=== PATIENT | male | born 1945 | race Caucasian/White ===

== ENCOUNTER 2018-08-15 14:15 | Inpatient (IN) | payer MEDICARE ==
[~2018-08-15] VITALS: Ht 180.3 cm; Wt 71.2 kg
[2018-08-15] MEDS ORDERED: LORA0.5T PO (14:27)
[2018-08-15] MEDS ORDERED: ATOR10TA PO (14:27)
[2018-08-15] MEDS ORDERED: ACET325T53 PO (14:27)
[2018-08-15] MEDS ORDERED: MULT-213 PO (14:27)
[2018-08-15] MEDS ORDERED: TEMA7.5C PO (14:27)
[2018-08-15] MEDS ORDERED: QUET50TA PO (14:27)
[2018-08-15] MEDS ORDERED: CITA10TA17 PO (14:27)
[2018-08-15] MEDS ORDERED: MELA3TAB PO (14:27)
[2018-08-15] MEDS ORDERED: QUET25TA PO (14:27)
--- NOTE | 2018-08-15 14:45 | NUR ---
hospital lunch tray provided for pt. pt is eating with good apetite
--- NOTE | 2018-08-15 15:00 | NUR ---
Dr Miles at the bedside for MSE.
[2018-08-15 15:21] LABS: BASOPHILS # (AUTO) 0.1 K/uL (0.0-8.0); BASOPHILS % (AUTO) 0.9 % (0.0-2.0); EOSINOPHILS # (AUTO) 0.1 K/uL (0.0-0.7); EOSINOPHILS % (AUTO) 1.2 % (0.0-7.0); HEMATOCRIT 39.9 % (36.7-47.1); HEMOGLOBIN 13.3 g/dL (12.5-16.3); LYMPHOCYTES % (AUTO) 14.1 % (20.5-51.5); MEAN CORPUSCULAR HGB CONC 33 g/dL (32.5-36.3); MEAN CORPUSCULAR VOLUME 98.7 fL (73.0-96.2); MONOCYTES # (AUTO) 0.7 K/uL (2.0-10.0); MONOCYTES % (AUTO) 9.6 % (0.0-11.0); NEUTROPHILS # (AUTO) 5.1 K/uL (1.8-8.9); NEUTROPHILS % (AUTO) 74.2 % (38.5-71.5); PLATELET COUNT (AUTO) 185 K/uL (152-348); RED BLOOD CELL COUNT(AUTO) 4.04 MIL/uL (4.06-5.63); WHITE BLOOD COUNT (AUTO) 6.9 K/uL (3.6-10.2)
[2018-08-15 15:28] LABS: CARBON DIOXIDE 28 mmol/L (21-32); CHLORIDE 106 mmol/L (98-107); CREATININE 1.4 mg/dL (0.6-1.3); GLUCOSE 133 mg/dL (74-106); UREA NITROGEN, BLOOD 24 mg/dL (7-18)
[2018-08-15 15:34] LABS: ACETAMINOPHEN < 2.0 ug/mL (10-30); ALANINE AMINOTRANSFERASE 25 U/L (16-63); ALKALINE PHOSPHATASE 81 U/L (50-136); ASPARTATE AMINOTRANSFERASE 20 U/L (15-37); BILIRUBIN,DIRECT 0.2 mg/dL (0.0-0.2); BILIRUBIN,TOTAL 0.3 mg/dL (0.2-1.0); TOTAL PROTEIN, SERUM 6.9 g/dL (6.4-8.2)
[2018-08-15 15:35] LABS: ETHANOL < 3 MG/DL (0-0)
[2018-08-15 15:54] LABS: THYROID STIMULATING HORMONE 1.665 mIU/mL (0.358-3.740)
--- NOTE | 2018-08-15 16:05 | NUR ---
Pt is medically cleared by Dr Miles. PET called and spoke to Marcy MEAD.
--- NOTE | 2018-08-15 16:28 | NUR ---
Per psych intake, Gigi. Lexie MEAD will evaluate pt.
[2018-08-15 16:29] LABS: *BILIRUBIN,URIN NEGATIVE (NEGATIVE); *BLOOD, URINE NEGATIVE (NEGATIVE); *CLARITY,URINE CLEAR (CLEAR); *COLOR,URINE YELLOW (YELLOW); *KETONES,URINE NEGATIVE (NEGATIVE); *PROTEIN,URINE NEGATIVE (NEGATIVE); *UROBILINOGEN,URINE 0.2 E.U./dl (NORMAL); LEUKOCYTE ESTERASE ,URINE NEGATIVE (NEGATIVE); NITRITE, URINE NEGATIVE (NEGATIVE); PH,URINE 5.5 (5.0-8.0); UGLUCOSE NEGATIVE (NEGATIVE)
[2018-08-15 16:32] LABS: WBC,URINE 0-3 /HPF (0-3)
[2018-08-15 16:33] LABS: MUCUS,URINE MODERATE /LPF (0-FEW)
[2018-08-15 16:39] LABS: *AMPHETAMINE, URINE NEGATIVE (NEGATIVE); *BARBITURATE, URINE NEGATIVE (NEGATIVE); *CANNABINOID, URINE NEGATIVE (NEGATIVE); *COCCAINE, URINE NEGATIVE (NEGATIVE); *OPIATE, URINE NEGATIVE (NEGATIVE); *PHENCYCLIDINE SCREEN,URINE NEGATIVE (NEGATIVE)
--- NOTE | 2018-08-15 17:14 | NUR ---
Lexie Kaplan at the bedside for psych eval.
--- NOTE | 2018-08-15 17:25 | NUR ---
MRSA swab collected and sent to LAB.
--- NOTE | 2018-08-15 17:30 | NUR ---
Pt placed on 5150 hold for GD. Pt served dinner, ate w/ excellent appetite.
[2018-08-15] MEDS ORDERED: MAGNESIUM HYDROXIDE 30 ML LIQUID UDC PO PRN (18:30)
[2018-08-15] MEDS ORDERED: MAG HYDROX/AL HYDROX/SIMETH 30 ML LIQUID UDC PO PRN (18:30)
[2018-08-15 18:45] VITALS: BP 122/70
[2018-08-15 19:30] VITALS: BP 122/70
[2018-08-15] MEDS: TEMAZEPAM 7.5 MG CAPSULE PO PRN (20:57)
[2018-08-15] MEDS: ATORVASTATIN 10 MG TABLET PO SCH (21:00)
[2018-08-15] MEDS: LORAZEPAM 0.5 MG TABLET PO PRN ×2 (22:45→22:47)
[2018-08-16] MEDS: LORAZEPAM 0.5 MG TABLET PO PRN ×2 (05:02→08:59)
[2018-08-16 07:30] VITALS: BP 93/50
[2018-08-16] MEDS: MULTIVIT, IRON, MIN NO. 8, FA TABLET PO SCH (08:21)
[2018-08-16] MEDS ORDERED: Medication Not On Formulary EA (Multivitamins W-Minerals (Multivitamin With Minerals) 1 PO SCH (09:00)
--- NOTE | 2018-08-16 09:00 | NUR ---
patient pacing in room grabbing trash and walking to restroom with it, when asked where patient was taking trash patient replied "I dont know" ativan given for anxiety, will continue to monitor
--- NOTE | 2018-08-16 13:07 | NUR ---
Nutrition consult for "refusing to eat" was received. Chart reviewed. h/o dementia, psychosis. Patient on a regular diet. Per ED nursing notes, patient ate both lunch and dinner yesterday with good appetite. Breakfast this morning documented as 100%. BMI is normal. Per nursing screen, patient denied any unintentional weight loss over the past 3 months, reported poor appetite/intake seemingly related to care home from which patient was admitted. RD to conduct full nutrition assessment per nutrition policy. Addendum: 08/16/18 at [address] Amended: Links added.
[2018-08-16] MEDS ORDERED: PERMETHRIN 5% CREAM 60 GM TUBE TP ONE (13:15)
--- NOTE | 2018-08-16 15:00 | NUR ---
Elimite cream applied all over body, educated patient on medication and the need for it to be washed off later tonight. will endorse to night time nanny
[2018-08-16] MEDS: QUETIAPINE FUMARATE 25 MG TABLET PO SCH (16:56)
[2018-08-16 17:01] VITALS: BP 94/51
[2018-08-16 20:52] VITALS: BP 100/51
[2018-08-16] MEDS ORDERED: CITALOPRAM 10 MG TABLET PO SCH (21:00)
[2018-08-16] MEDS: ATORVASTATIN 10 MG TABLET PO SCH (22:18)
[2018-08-16] MEDS: TEMAZEPAM 7.5 MG CAPSULE PO PRN (22:55)
[2018-08-17] MEDS: LORAZEPAM 0.5 MG TABLET PO PRN ×2 (01:08→05:10)
[2018-08-17] MEDS: ACETAMINOPHEN 325 MG TABLET PO PRN (01:10)
--- NOTE | 2018-08-17 02:02 | NUR ---
Received pt to care, pt noted to be laying in bed, service writer observed pt moving feet and body around. Pt was showered, clothes and linen were changed. Pt was alert and oriented x 2-3, pleasant, cooperative, withdrawn. Pt complied with taking his medication. Approximately 0100 pt came to the nursing station complaining of a headache. Pt was offered tylenol but he refused, pt was offered ativan pt obliged and also stated that he would like to take the tylenol as well. PRN's were given. Pt is now back in bed. I will continue to monitor.
--- NOTE | 2018-08-17 02:08 | NUR ---
Approximately 2000 Pt family members brought a black sweater and white T-shirt with a note for pt. Belongings added to chart and pt name written in the collar with a black sharpie. Pt was given the items.
--- NOTE | 2018-08-17 05:12 | NUR ---
pt is complaining of having a headache 03/07, tylenol could not be admin as it was not due. Pt offered ativan and it was given. Pt states that he has a "daily morning headache" that he has been getting for a while now. Ramp Jockey will endorse to day shift. Pt also took off his gown and came into the guardado wearing a little brown jacket. Pt complained of being cold. Ramp Jockey redirected as pt was practically naked with jacket. Pt seems anxious.
[2018-08-17 07:30] VITALS: BP 127/78
[2018-08-17] MEDS: MULTIVIT, IRON, MIN NO. 8, FA TABLET PO SCH (08:19)
[2018-08-17] MEDS: QUETIAPINE FUMARATE 25 MG TABLET PO SCH ×2 (08:19→12:09)
[2018-08-17 17:15] VITALS: BP 100/55
[2018-08-17 20:08] VITALS: BP 100/48
[2018-08-17] MEDS: ATORVASTATIN 10 MG TABLET PO SCH (21:23)
[2018-08-17] MEDS: OLANZAPINE 2.5 MG TABLET PO SCH (21:23)
[2018-08-18] MEDS: LORAZEPAM 0.5 MG TABLET PO PRN (01:05)
--- NOTE | 2018-08-18 06:56 | NUR ---
Pt compliant with meds, stayed in his room withdrawn most of the shift. Pt woke up one time stating that he could not sleep. Req to sleep in the TV room, pt redirected back to his room and PRN ativan was given. It was too late to give a sleeping pill. Pt sat in his room chair with a blanket, quietly. After 30 min pt returned back to bed. Pt is cooperative, isolated.
[2018-08-18 08:26] VITALS: BP 103/54
[2018-08-18] MEDS: MULTIVIT, IRON, MIN NO. 8, FA TABLET PO SCH (08:51)
--- NOTE | 2018-08-18 11:36 | NUR ---
Initial Discharge Note: Patient is currently living at [facility] [[address] [place] [address]; ]. Per event promotions coordinator, Deepika, they would liek patient to find different placement due to behaviors. However, patient is welcomed back if no other placement can be arranged. Patient states he likes facility but may want to go to an independent living. alley worker is awaiting call back from son, Guilherme [[phone]], to discuss placement as he may be patient DPOA. Per psych MD, recommendation is SNF placement. alley worker will collaborate with patient, patient son, and son on a safe and proper discharge for patient.
--- NOTE | 2018-08-18 12:03 | NUR ---
Firearms Report: LOGAN completed and submitted DOJ Firearms Report for 5250 GD certification.
--- NOTE | 2018-08-18 15:47 | NUR ---
GROUP ACTIVITY NOTE: GOAL Patient will actively participate in the group activity of the day or relax out in the patio room with fellow patients. INTERVENTION Starbucks Clerk invited patient to participate in a group activity consisting of crossword puzzles and coloring held from 10:30-11:15 am out in the patio. RESPONSE Patient expressed disinterest in participating in activities or relaxing in the activities room with peers. Patient remained in their room resting during that time. PLAN Patient will be invited to attend the next group activity.
[2018-08-18 16:39] VITALS: BP 106/67
[2018-08-18 20:22] VITALS: BP 110/61
[2018-08-18] MEDS: ATORVASTATIN 10 MG TABLET PO SCH (20:49)
[2018-08-18] MEDS: OLANZAPINE 2.5 MG TABLET PO SCH (20:49)
[2018-08-19 07:24] LABS: BASOPHILS % (AUTO) 0.7 % (0.0-2.0); EOSINOPHILS # (AUTO) 0.1 K/uL (0.0-0.7); EOSINOPHILS % (AUTO) 2.1 % (0.0-7.0); HEMATOCRIT 42.5 % (36.7-47.1); HEMOGLOBIN 14.6 g/dL (12.5-16.3); LYMPHOCYTES # (AUTO) 1.1 K/uL (20.0-40.0); LYMPHOCYTES % (AUTO) 23.7 % (20.5-51.5); MEAN CORPUSCULAR HGB CONC 34 g/dL (32.5-36.3); MEAN CORPUSCULAR VOLUME 96.4 fL (73.0-96.2); MONOCYTES # (AUTO) 0.7 K/uL (2.0-10.0); MONOCYTES % (AUTO) 14.3 % (0.0-11.0); NEUTROPHILS # (AUTO) 2.9 K/uL (1.8-8.9); NEUTROPHILS % (AUTO) 59.2 % (38.5-71.5); PLATELET COUNT (AUTO) 160 K/uL (152-348); RED BLOOD CELL COUNT(AUTO) 4.41 MIL/uL (4.06-5.63); WHITE BLOOD COUNT (AUTO) 4.8 K/uL (3.6-10.2)
[2018-08-19 07:30] VITALS: BP 108/67
[2018-08-19 07:37] LABS: ALANINE AMINOTRANSFERASE 21 U/L (16-63); ALKALINE PHOSPHATASE 75 U/L (50-136); ASPARTATE AMINOTRANSFERASE 18 U/L (15-37); BILIRUBIN,TOTAL 0.7 mg/dL (0.2-1.0); CARBON DIOXIDE 29 mmol/L (21-32); CHLORIDE 106 mmol/L (98-107); CREATINE KINASE, TOTAL 61 U/L (39-308); CREATININE 1.2 mg/dL (0.6-1.3); GLUCOSE 81 mg/dL (74-106); PHOSPHOROUS 3.4 mg/dL (2.5-4.9); POTASSIUM 4.3 mmol/L (3.5-5.1); TOTAL PROTEIN, SERUM 6.9 g/dL (6.4-8.2); UREA NITROGEN, BLOOD 27 mg/dL (7-18)
[2018-08-19] MEDS: MULTIVIT, IRON, MIN NO. 8, FA TABLET PO SCH (09:22)
[2018-08-19] MEDS: LORAZEPAM 0.5 MG TABLET PO PRN ×3 (09:28→17:46)
[2018-08-19 16:14] VITALS: BP 106/56
--- NOTE | 2018-08-19 16:19 | NUR ---
Gps/Senior Tax Analyst- Had been in and out of his room, safety reviewed, compliant with medications, confused, needed redirections.
[2018-08-19] MEDS: ACETAMINOPHEN 325 MG TABLET PO PRN ×2 (17:42→17:45)
[2018-08-19] MEDS: OLANZAPINE 2.5 MG TABLET PO SCH (20:52)
[2018-08-19] MEDS: ATORVASTATIN 10 MG TABLET PO SCH (20:52)
[2018-08-19 21:53] VITALS: BP 110/67
[2018-08-19] MEDS: TEMAZEPAM 7.5 MG CAPSULE PO PRN (22:46)
[2018-08-20 08:23] VITALS: BP 101/61
[2018-08-20] MEDS: MULTIVIT, IRON, MIN NO. 8, FA TABLET PO SCH (08:26)
[2018-08-20 16:23] VITALS: BP 114/60
[2018-08-20 20:09] VITALS: BP 101/60
[2018-08-20] MEDS ORDERED: OLANZAPINE 2.5 MG TABLET PO SCH (21:00)
[2018-08-20] MEDS: DIVALPROEX 500 MG TABLET.DR PO SCH (21:08)
[2018-08-20] MEDS: ATORVASTATIN 10 MG TABLET PO SCH (21:08)
[2018-08-20] MEDS: OLANZAPINE 5 MG TABLET PO SCH (21:08)
[2018-08-21 07:30] VITALS: BP 90/50
[2018-08-21] MEDS: DIVALPROEX 250 MG TABLET.DR PO SCH (09:35)
[2018-08-21] MEDS: MULTIVIT, IRON, MIN NO. 8, FA TABLET PO SCH (09:35)
[2018-08-21 16:02] VITALS: BP 113/63
--- NOTE | 2018-08-21 18:24 | NUR ---
PT WAS NOTED TO HAVE BIZARRE BEHAVIOR, STIP HIS BED AND PUT LINEN IN THE TRASH, WASHING CLOTHES IN THE TOILET, PT IS RESTLESS AND DOES NOT KNOW WHY HE DID IT. DR. BENITEZ CONTACTED, ORDER FOR 1;1 SITTER OBTAINED.
[2018-08-21 20:00] VITALS: BP 104/65
[2018-08-21] MEDS: ATORVASTATIN 10 MG TABLET PO SCH (20:08)
[2018-08-21] MEDS: DIVALPROEX 500 MG TABLET.DR PO SCH (20:08)
[2018-08-21] MEDS: OLANZAPINE 5 MG TABLET PO SCH (20:08)
--- NOTE | 2018-08-21 21:00 | NUR ---
RECEIVED PATIENT IN THE DAY ROOM WATCHING TV. HE IS NOW ON 1:1 SUPERVISION D/T INCREASING BIZARRE BX. WONDERING INTO OTHER PATIENT'S ROOM, MOVING FURNITURE, BLANKETS, SHEETS, CONSTANTLY CHANGING CLOTHES AND PACING THE HALLWAY. HE IS NOTED A/O X 1, HE IS ABLE TO AMBULATE WITH STEADY GAIT AND ABLE TO MAKE HIS NEEDS KNOWN. PATIENT PRESENTS WITH LABILE BX. TANGENTAL BIZARRE BX. ATIVAN 0.5MG PO PRN WAS GIVEN FOR ANXIETY AND AGITATION. SAFETY WAS EMPHASIS. WILL CONTINUE TO MONITOR.
[2018-08-21] MEDS: LORAZEPAM 0.5 MG TABLET PO PRN (21:03)
[2018-08-22 07:30] VITALS: BP 107/60
[2018-08-22] MEDS: MULTIVIT, IRON, MIN NO. 8, FA TABLET PO SCH (08:46)
[2018-08-22] MEDS: DIVALPROEX 250 MG TABLET.DR PO SCH (08:46)
[2018-08-22 14:41] LABS: *BILIRUBIN,URIN NEGATIVE (NEGATIVE); *BLOOD, URINE NEGATIVE (NEGATIVE); *CLARITY,URINE CLEAR (CLEAR); *COLOR,URINE YELLOW (YELLOW); *KETONES,URINE NEGATIVE (NEGATIVE); *PROTEIN,URINE NEGATIVE (NEGATIVE); *UROBILINOGEN,URINE 0.2 E.U./dl (NORMAL); LEUKOCYTE ESTERASE ,URINE NEGATIVE (NEGATIVE); NITRITE, URINE NEGATIVE (NEGATIVE); UGLUCOSE NEGATIVE (NEGATIVE)
[2018-08-22 14:53] LABS: BACTERIA,URINE NONE SEEN /HPF (NONE SEEN); RBC,URINE 0-3 /HPF (0-3); SQUAMOUS EPITHELIAL CELL,UR FEW /HPF (NONE SEEN); WBC,URINE 0-3 /HPF (0-3)
[2018-08-22 14:54] LABS: *CREATININE,URINE 106.9 mg/dL (30-125)
[2018-08-22 15:43] LABS: *URINE TOTAL PROTEIN RANDOM 14.5 mg/dL (<150/24HR)
[2018-08-22 16:10] VITALS: BP 91/53
--- NOTE | 2018-08-22 17:36 | NUR ---
Gps/Special Delivery Carrier- Remains with a 1:1 Nursing supervision for safety, needing constant redirections, tends to paced around . Safety reviewed and continue to emphasized.Meds. compliant.
[2018-08-22 20:00] VITALS: BP 102/55
[2018-08-22] MEDS: ATORVASTATIN 10 MG TABLET PO SCH (20:44)
[2018-08-22] MEDS: TEMAZEPAM 7.5 MG CAPSULE PO PRN (20:44)
[2018-08-22] MEDS: DIVALPROEX 500 MG TABLET.DR PO SCH (20:44)
[2018-08-22] MEDS ORDERED: OLANZAPINE 5 MG TABLET PO SCH (21:00)
[2018-08-23] MEDS: LORAZEPAM 0.5 MG TABLET PO PRN (06:09)
[2018-08-23 07:30] VITALS: BP_SYST 132; BP_SYST 94; BP_DIAS 50; BP_DIAS 69
[2018-08-23] MEDS: MULTIVIT, IRON, MIN NO. 8, FA TABLET PO SCH (08:25)
[2018-08-23] MEDS: DIVALPROEX 250 MG TABLET.DR PO SCH (08:25)
[2018-08-23 16:00] VITALS: BP 90/53
[2018-08-23 19:49] VITALS: BP 99/72
[2018-08-23] MEDS: OLANZAPINE 5 MG TABLET PO SCH (20:15)
[2018-08-23] MEDS: ATORVASTATIN 10 MG TABLET PO SCH (20:15)
[2018-08-23] MEDS: DIVALPROEX 500 MG TABLET.DR PO SCH (20:16)
--- NOTE | 2018-08-24 06:01 | NUR ---
Received Pt in the hallways asking for crackers. A+Ox3, Pt is intrusive, attention-seeking, demanding, needy, manipulative, and entitled. Irritable when demands aren't immediately met. Pt is constantly asking for extra snacks despite consuming several snacks during the shift, attempts to staff split when given limits. Pt asked for the TV to be changed in the day room while other patients are in the middle of a program. Threatened to pull the fire alarm if he didn't get toothpaste. Pt stripped his bed and asked for new bedding 2 times, then demanded staff put the new bedding on. Requires frequent redirection and limit setting. Compliant with medications, VS stable, denies pain. In no acute physical distress. Took AM shower.
[2018-08-24 07:30] VITALS: BP 98/60
[2018-08-24] MEDS: DIVALPROEX 500 MG TABLET.DR PO SCH ×2 (08:16→20:24)
[2018-08-24] MEDS: MULTIVIT, IRON, MIN NO. 8, FA TABLET PO SCH ×2 (08:16→10:26)
--- NOTE | 2018-08-24 09:47 | NUR ---
Discharge Planning: plugger worker called and left voicemail for patient sonGuilherme [[phone]], requesting phone call back to discuss discharge plan. Patient is a resident from [facility]. Per facility, they will take him back but would like him to be placed in a different facility if possible. plugger worker will need to speak with patient son, Guilherme, who is also DPOA, about placement.
[2018-08-24] MEDS: LORAZEPAM 0.5 MG TABLET PO PRN (10:31)
--- NOTE | 2018-08-24 14:53 | NUR ---
Discharge Planning Note: Linen Checker received call from patient's son, Guilherme ([phone]) to discuss discharge planning and the patient's prognosis. Explained to son the patient's plan to "go to [place]," and reside with family there. Per son, pt "can't get it in his head" that family who lives in [place] cannot care for him. Per son, pt's family is all located in [place]. SW discussed Woodrow Ramsey's wishes with son, and son agreed to alternate locked SNF placement for the patient. SW inquired about DPOA paperwork, and son reported he will bring it with him tomorrow, 08/25/18, when he comes to visit the patient. LOGAN consulted with Dr. Oquendo who asked that referrals be sent to [facility] (ph. [phone] ; fax [phone] Attn: Anika) and [facility] (ph. [phone]; fax [phone] Attn: Guy). Awaiting responses from facilities. SW will continue to follow-up.
[2018-08-24 16:44] VITALS: BP 114/69
[2018-08-24 20:12] VITALS: BP 130/75
[2018-08-24] MEDS: OLANZAPINE 5 MG TABLET PO SCH (20:24)
[2018-08-24] MEDS: ATORVASTATIN 10 MG TABLET PO SCH (20:24)
[2018-08-25 07:30] VITALS: BP 105/62
[2018-08-25] MEDS: DIVALPROEX 500 MG TABLET.DR PO SCH ×2 (08:15→20:07)
--- NOTE | 2018-08-25 10:06 | NUR ---
Discharge Planning Note: SW received call from patient's ex-, Ana ([phone]) and pt's son, Guilherme requesting that inquiries be faxed to the [facility] as well. Per family request, LOGAN faxed inquiries to the following facilities: Leatha Jules (P: [phone] F: [phone]) [facility] (p. [phone]; f. [phone]) Attn: Nalini Robins [facility] (p. [phone]; f. [phone]) Attn: Charlotte Muniz (p. [phone]; f. [phone]) Attn: Lindsay Awaiting responses from facilities. LOGAN will continue to follow-up. Addendum: 08/26/18 at 1525 by RADHIKA HAYDEN LOGAN received responses from the following facilities: [facility]: Pt denied due to inability to provide for pt's needs [facility]: Pt denied due to lack of male beds available Alie Muniz: Pt denied due to lace of beds available [facility]: Pt accepted [facility]: Pt accepted LOGAN will continue to follow-up with Leatha Tuckerero and pt's family to discuss DC plan.
[2018-08-25 16:16] VITALS: BP 106/64
--- NOTE | 2018-08-25 16:31 | NUR ---
GROUP ACTIVITY NOTE: GOAL Patient will actively participate in the group activity of the day or relax in the activity room with fellow patients. INTERVENTION Clinic Supervisor internal controls analyst invited patient to participate in a group activity consisting of painting masks, completing crossword puzzles or reading held from 2-2:30 pm in the activities room. RESPONSE Patient was asleep when approached to attend the group activity. Patient rested in their room for the remainder of time. PLAN Patient will be invited to attend the next group activity.
[2018-08-25] MEDS: BENZTROPINE MESYLATE 0.5 MG TABLET PO SCH (16:32)
[2018-08-25] MEDS: HALOPERIDOL 5 MG TABLET PO SCH (17:38)
[2018-08-25] MEDS: ACETAMINOPHEN 325 MG TABLET PO PRN (18:24)
[2018-08-25 19:57] VITALS: BP 109/73
[2018-08-25] MEDS: ATORVASTATIN 10 MG TABLET PO SCH (20:08)
[2018-08-26] MEDS: TEMAZEPAM 7.5 MG CAPSULE PO PRN ×2 (01:10→21:50)
[2018-08-26 07:30] VITALS: BP 116/65
[2018-08-26] MEDS: BENZTROPINE MESYLATE 0.5 MG TABLET PO SCH ×3 (08:29→17:58)
[2018-08-26] MEDS: DIVALPROEX 500 MG TABLET.DR PO SCH ×2 (08:29→20:36)
[2018-08-26] MEDS: MULTIVIT, IRON, MIN NO. 8, FA TABLET PO SCH (08:29)
[2018-08-26] MEDS: HALOPERIDOL 5 MG TABLET PO SCH ×2 (08:29→17:58)
[2018-08-26 10:52] VITALS: BP 116/65
[2018-08-26 16:00] VITALS: BP 112/78
--- NOTE | 2018-08-26 20:00 | NUR ---
NSG: pt is awake, alert. no acute distress noted. a bit anxious. has several cuts on fingers due to dryness, wants to put band aid on every single cut. needs redirection at all times. cont to monitor. self-care, ambulatory with steady gait.
[2018-08-26 20:33] VITALS: BP 114/61
[2018-08-26] MEDS: ATORVASTATIN 10 MG TABLET PO SCH (20:36)
[2018-08-27 07:02] LABS: BASOPHILS % (AUTO) 0.6 % (0.0-2.0); EOSINOPHILS # (AUTO) 0.1 K/uL (0.0-0.7); EOSINOPHILS % (AUTO) 2.9 % (0.0-7.0); HEMATOCRIT 42.5 % (36.7-47.1); HEMOGLOBIN 14.3 g/dL (12.5-16.3); LYMPHOCYTES # (AUTO) 1.3 K/uL (20.0-40.0); LYMPHOCYTES % (AUTO) 26.3 % (20.5-51.5); MEAN CORPUSCULAR HEMOGLOBIN 32.3 uug (23.8-33.4); MEAN CORPUSCULAR HGB CONC 34 g/dL (32.5-36.3); MEAN CORPUSCULAR VOLUME 95.8 fL (73.0-96.2); MONOCYTES # (AUTO) 0.8 K/uL (2.0-10.0); MONOCYTES % (AUTO) 15.2 % (0.0-11.0); NEUTROPHILS # (AUTO) 2.7 K/uL (1.8-8.9); PLATELET COUNT (AUTO) 117 K/uL (152-348); RED BLOOD CELL COUNT(AUTO) 4.44 MIL/uL (4.06-5.63)
[2018-08-27 07:19] LABS: CARBON DIOXIDE 29 mmol/L (21-32); CHLORIDE 104 mmol/L (98-107); CREATININE 1.2 mg/dL (0.6-1.3); GLUCOSE 62 mg/dL (74-106); MAGNESIUM 2.1 mg/dL (1.8-2.4); PHOSPHOROUS 3.4 mg/dL (2.5-4.9); UREA NITROGEN, BLOOD 24 mg/dL (7-18)
[2018-08-27 07:30] VITALS: BP 112/64
[2018-08-27 07:39] LABS: EOSINOPHILS % (MANUAL) 2 % (0-8); LYMPHOCYTES % (MANUAL) 26 % (20-40); MONOCYTES % (MANUAL) 15 % (2-10)
[2018-08-27 07:40] LABS: NEUTROPHILS % (MANUAL) 57 % (42-75)
[2018-08-27] MEDS: DIVALPROEX 500 MG TABLET.DR PO SCH (08:34)
[2018-08-27] MEDS: HALOPERIDOL 5 MG TABLET PO SCH ×2 (08:34→17:27)
[2018-08-27] MEDS: BENZTROPINE MESYLATE 0.5 MG TABLET PO SCH ×3 (08:34→17:28)
[2018-08-27] MEDS: MULTIVIT, IRON, MIN NO. 8, FA TABLET PO SCH (08:34)
--- NOTE | 2018-08-27 08:50 | NUR ---
Blood sugar with am draw 62, rechecked sugar prior to breakfast 72. will monitor and will notify MD upon rounding.
--- NOTE | 2018-08-27 14:29 | NUR ---
GROUP ACTIVITY NOTE: GOAL Patient will actively participate in the group activity of the day or relax in the activity room with fellow patients. INTERVENTION Environmental Test Technician sports management intern invited patient to participate in a group activity consisting of board games, painting masks, or watching TV held from 10-10:45 am in the activities room. RESPONSE Patient expressed disinterest in participating in group activities. PLAN Patient will be invited to attend the next group activity.
--- NOTE | 2018-08-27 14:53 | NUR ---
Discharge Note: Patient will be discharged to [facility] [[address] [place] [address]; ] and transportation will be provided by ambulance at 4:00pm. Please arrange ambulance transportation for this patient. Confirmation of acceptance at facility was provided by calixto Tovar, at facility who states they are ready to accept the patient. forming process worker has called and spoken with patient son, Guilherme [[phone]], and informed him of patient discharge. Patient is alert and oriented x2-3 and denies any SI/HI. Patient was briefed on discharge and aware and agreeable to plan. Patient will follow-up with Dr. Damon (chef german) and Dr. Oquendo (psychiatrist). Patient was given outpatient mental health resources including [facility] Crisis Line [ ], Mari Winters [ ], and the National Suicide Prevention Lifeline [ ].
[2018-08-27 16:00] VITALS: BP 120/70
--- NOTE | 2018-08-27 18:02 | NUR ---
Pt discharged via ambulance after dinner. Report given to ALYCE Otero from [facility]. Addendum: 08/27/18 at 1803 by MARCIANO MAKI RN All belongings sent with pt.
== END 2018-08-27 18:00 | DRG 885 ==
LOC: ER 14:15 → GPS 17:54
PROVIDERS: ADMIT Psychiatry & Neurology Psychiatry; ATTEND Psychiatry & Neurology Psychiatry
DX: F33.3 Major depressive disorder, recurrent, severe with psychotic symptoms (principal); N17.0 Acute kidney failure with tubular necrosis; N18.3 Chronic kidney disease, stage 3 (moderate); F03.91 Unspecified dementia, unspecified severity, with behavioral disturbance; F23 Brief psychotic disorder; F41.9 Anxiety disorder, unspecified; E78.5 Hyperlipidemia, unspecified; F42.9 Obsessive-compulsive disorder, unspecified; G47.00 Insomnia, unspecified; R73.9 Hyperglycemia, unspecified; I12.9 Hypertensive chronic kidney disease with stage 1 through stage 4 chronic kidney disease, or unspecified chronic kidney disease; E88.09 Other disorders of plasma-protein metabolism, not elsewhere classified; B86 Scabies
CPT/HCPCS: 36415; 70030-TC; 71045; 80164; 80307; 83735; 83970; 84100; 84156; 84300; 84443; 85025; 85730; 93005; A4663; G0480; G0480-TC; J3490

== ENCOUNTER 2018-10-18 20:47 | Inpatient (IN) | payer MEDICARE ==
[~2018-10-18] VITALS: Ht 175.3 cm; Wt 69.4 kg
[~2018-10-18 20:47] MED LIST: ACET325T53 PO; ATOR10TA PO; MULT-213 PO
--- NOTE | 2018-10-18 21:00 | NUR ---
Patient bib ambulanz unit #[id number] from [facility]. Patient is here for medical clearance for MHU. Patient is on a 5150 for GD and DTO. Upon assessment, patient is AAO x 1 and confused. Patient is calm and cooperative. Safety precautions implemented. Will continue to monitor closely.
[2018-10-18 21:17] LABS: BASOPHILS % (AUTO) 0.7 % (0.0-2.0); EOSINOPHILS # (AUTO) 0.1 K/uL (0.0-0.7); EOSINOPHILS % (AUTO) 1.6 % (0.0-7.0); HEMATOCRIT 39.9 % (36.7-47.1); HEMOGLOBIN 13.7 g/dL (12.5-16.3); LYMPHOCYTES # (AUTO) 1.1 K/uL (20.0-40.0); MEAN CORPUSCULAR HEMOGLOBIN 33.5 uug (23.8-33.4); MEAN CORPUSCULAR HGB CONC 35 g/dL (32.5-36.3); MEAN CORPUSCULAR VOLUME 97.1 fL (73.0-96.2); MONOCYTES # (AUTO) 0.6 K/uL (2.0-10.0); MONOCYTES % (AUTO) 12.8 % (0.0-11.0); NEUTROPHILS # (AUTO) 2.7 K/uL (1.8-8.9); NEUTROPHILS % (AUTO) 59.9 % (38.5-71.5); PLATELET COUNT (AUTO) 56 K/uL (152-348); RED BLOOD CELL COUNT(AUTO) 4.11 MIL/uL (4.06-5.63); WHITE BLOOD COUNT (AUTO) 4.5 K/uL (3.6-10.2)
[2018-10-18 21:19] LABS: *BILIRUBIN,URIN NEGATIVE (NEGATIVE); *BLOOD, URINE Trace-intact (NEGATIVE); *CLARITY,URINE CLEAR (CLEAR); *COLOR,URINE YELLOW (YELLOW); *KETONES,URINE TRACE (NEGATIVE); *UROBILINOGEN,URINE 0.2 E.U./dl (NORMAL); LEUKOCYTE ESTERASE ,URINE NEGATIVE (NEGATIVE); NITRITE, URINE NEGATIVE (NEGATIVE); PH,URINE 7.5 (5.0-8.0); UGLUCOSE NEGATIVE (NEGATIVE)
[2018-10-18 21:25] LABS: CARBON DIOXIDE 33 mmol/L (21-32); CHLORIDE 103 mmol/L (98-107); CREATININE 1.2 mg/dL (0.6-1.3); GLUCOSE 98 mg/dL (74-106); POTASSIUM 4.5 mmol/L (3.5-5.1); UREA NITROGEN, BLOOD 19 mg/dL (7-18)
[2018-10-18 21:25] LABS: BACTERIA,URINE NONE SEEN /HPF (NONE SEEN); RBC,URINE 0-3 /HPF (0-3); SQUAMOUS EPITHELIAL CELL,UR NONE SEEN /HPF (NONE SEEN); WBC,URINE 0-3 /HPF (0-3)
[2018-10-18 21:28] LABS: *AMPHETAMINE, URINE NEGATIVE (NEGATIVE); *BARBITURATE, URINE NEGATIVE (NEGATIVE); *CANNABINOID, URINE NEGATIVE (NEGATIVE); *COCCAINE, URINE NEGATIVE (NEGATIVE); *OPIATE, URINE NEGATIVE (NEGATIVE); *PHENCYCLIDINE SCREEN,URINE NEGATIVE (NEGATIVE)
[2018-10-18 21:31] LABS: ALANINE AMINOTRANSFERASE 23 U/L (16-63); ALKALINE PHOSPHATASE 64 U/L (50-136); ASPARTATE AMINOTRANSFERASE 25 U/L (15-37); BILIRUBIN,DIRECT 0.1 mg/dL (0.0-0.2); BILIRUBIN,TOTAL 0.4 mg/dL (0.2-1.0); TOTAL PROTEIN, SERUM 7.5 g/dL (6.4-8.2)
[2018-10-18 21:34] LABS: ACETAMINOPHEN < 2.0 ug/mL (10-30); ETHANOL < 3 MG/DL (0-0)
[2018-10-18 21:36] LABS: BAND % (MANUAL) 2 % (0-10); LYMPHOCYTES % (MANUAL) 30 % (20-40); MONOCYTES % (MANUAL) 18 % (2-10); NEUTROPHILS % (MANUAL) 50 % (42-75)
--- NOTE | 2018-10-18 21:43 | NUR ---
Patient medically cleared by ER
[2018-10-18] MEDS ORDERED: TEMA7.5C PO (21:53)
[2018-10-18] MEDS ORDERED: FLUV150C2 PO (21:53)
[2018-10-18] MEDS ORDERED: LORA-258 PO (21:53)
[2018-10-18] MEDS ORDERED: HALO5TAB12 PO (21:53)
[2018-10-18] MEDS ORDERED: IBUP-1955 PO (21:53)
[2018-10-18] MEDS ORDERED: DIVA500T2 PO (21:53)
--- NOTE | 2018-10-18 22:15 | NUR ---
Pt. admitted to MHU , under care of Dr. Brown/Con Belongs List completed Report given to Rosita MEAD
[2018-10-18 22:20] VITALS: BP 116/72
[2018-10-18] MEDS ORDERED: LORAZEPAM 0.5 MG TABLET PO PRN (22:45)
[2018-10-18] MEDS ORDERED: MAG HYDROX/AL HYDROX/SIMETH 30 ML LIQUID UDC PO PRN (22:45)
[2018-10-18] MEDS ORDERED: MAGNESIUM HYDROXIDE 30 ML LIQUID UDC PO PRN (22:45)
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
[2018-10-18] MEDS ORDERED: BENZ2AMP3 PO (22:58)
[2018-10-18] MEDS ORDERED: ASPI-605 PO (22:59)
[2018-10-18] MEDS ORDERED: ACET-2154 PO (23:01)
[2018-10-18] MEDS ORDERED: ACET-2605 PO (23:15)
[2018-10-18] MEDS ORDERED: ACETAMINOPHEN 325 MG TABLET PO PRN (23:45)
[2018-10-19] MEDS: TEMAZEPAM 7.5 MG CAPSULE PO PRN ×2 (01:25→22:22)
[2018-10-19 07:30] VITALS: BP 91/44
[2018-10-19] MEDS ORDERED: ASPIRIN EC 81 MG TABLET.DR PO SCH (09:00)
--- NOTE | 2018-10-19 11:02 | NUR ---
Firearms Report: channel worker completed and submitted a firearms report for a 5150 DTO certification.
[2018-10-19] MEDS ORDERED: LORAZEPAM 1 MG TABLET PO PRN (11:30)
[2018-10-19 15:43] VITALS: BP 90/51
--- NOTE | 2018-10-19 16:27 | NUR ---
GPS: NURSING: NOTIFIED DELONTE SANDERS NP, REGARDING NEW PATIENT , BRANDON FLOYD'S MEDICATIONS TO RECONCILE IT. DELONTE SANDERS NP, CONFIRMED THAT HE WILL DO IT. Addendum: 10/19/18 at 1636 by PORSCHE KULKARNI RN GPS: NURSING NOTE: THIS IS A LATE CHARTING FOR 13:52 HRS. WHEN DELONTE SANDERS WAS NOTIFIED.
[2018-10-19] MEDS: DIVALPROEX 500 MG TABLET.DR PO SCH (20:12)
[2018-10-19] MEDS: BENZTROPINE MESYLATE 0.5 MG TABLET PO SCH (20:12)
[2018-10-19] MEDS: HALOPERIDOL 5 MG TABLET PO SCH (20:13)
[2018-10-19] MEDS: Z GUARD REMEDY PASTE 57 GM TUBE TOP SCH (20:13)
[2018-10-19 20:36] VITALS: BP 116/70
[2018-10-19] MEDS ORDERED: HALOPERIDOL 2 MG TABLET PO SCH (21:00)
--- NOTE | 2018-10-20 02:30 | NUR ---
GPS: Pt.is awake at this time. Anxious,restless and attempting to wander from room to room. Needs frequent re-direction from staff due to confusion and disorientation. Poor insight to present situation. Ativan 1mg given PO at this time. Will monitor effectiveness and for any adverse reactions. Safety emphasized.
[2018-10-20 07:30] VITALS: BP 109/61
[2018-10-20] MEDS: DIVALPROEX 500 MG TABLET.DR PO SCH ×2 (08:57→20:39)
[2018-10-20] MEDS: HALOPERIDOL 5 MG TABLET PO SCH ×2 (08:57→20:38)
[2018-10-20] MEDS: BENZTROPINE MESYLATE 0.5 MG TABLET PO SCH ×2 (08:57→20:38)
[2018-10-20] MEDS: FLUVOXAMINE MALEATE 50 MG TABLET PO SCH (08:57)
[2018-10-20] MEDS: Z GUARD REMEDY PASTE 57 GM TUBE TOP SCH ×2 (09:00→20:39)
[2018-10-20 16:00] VITALS: BP 99/52
--- NOTE | 2018-10-20 16:23 | NUR ---
GROUP NOTE: Patients were asked to attend group to draw pictures of their favorite animals and describe how that animal may represent who they are. S: "---" O: Patient did not attend group A: Patient presented sleeping at the time group began. Patient was not able to be woken up. P: SW will continue to encourage group participation as scheduled.
--- NOTE | 2018-10-20 16:26 | NUR ---
Initial Discharge Note: Patient is a 73 year old male who currently resides at [facility] [[address] [place] [address]; ]. Per Lizette Montero, hospital admissions clerk at facility, patient is not on a bed hold and is not able to return upon discharge. Per Lizette, patient could return if he were on a bed hold, however, son, Guilherme, does not want to pay for bed hold and does not want his father returning to facility. Per Guilherme [[phone]], he is arranging placement at a memory care unit in [place], [place]. Guilherme states he will follow-up with social media coordinator regarding placement. mat worker will continue to collaborate with patient, patient son, and MD on a safe and proper discharge.
[2018-10-20 22:00] VITALS: BP 127/71
[2018-10-20] MEDS: TEMAZEPAM 7.5 MG CAPSULE PO PRN (22:11)
[2018-10-21] MEDS: BENZTROPINE MESYLATE 0.5 MG TABLET PO SCH ×2 (08:36→20:37)
[2018-10-21] MEDS: DIVALPROEX 500 MG TABLET.DR PO SCH ×2 (08:36→20:37)
[2018-10-21] MEDS: HALOPERIDOL 5 MG TABLET PO SCH ×2 (08:36→20:37)
[2018-10-21] MEDS: FLUVOXAMINE MALEATE 50 MG TABLET PO SCH (08:36)
[2018-10-21] MEDS: Z GUARD REMEDY PASTE 57 GM TUBE TOP SCH ×2 (08:37→20:37)
[2018-10-21 16:00] VITALS: BP 105/64
--- NOTE | 2018-10-21 16:00 | NUR ---
GPS: NURSING: NOTIFIED DELONTE SANDERS NP, REGRADING PATIENT BRANDON FLOYD'S LAB RESULT OF PLATELETS 56L , AND PATIENT IS ON ECOTRIN 81 MG, NO BLEEDING NOTED. CONFIRMED BY DELONTE SANDERS WITH NO NEW ORDER NOTED.
[2018-10-21 20:28] VITALS: BP 110/62
[2018-10-21] MEDS: TEMAZEPAM 7.5 MG CAPSULE PO PRN (23:34)
[2018-10-22 08:30] VITALS: BP 98/58
[2018-10-22] MEDS: FLUVOXAMINE MALEATE 50 MG TABLET PO SCH (08:39)
[2018-10-22] MEDS: HALOPERIDOL 5 MG TABLET PO SCH ×2 (08:39→20:04)
[2018-10-22] MEDS: DIVALPROEX 500 MG TABLET.DR PO SCH ×2 (08:39→20:03)
[2018-10-22] MEDS: BENZTROPINE MESYLATE 0.5 MG TABLET PO SCH ×2 (08:39→20:03)
[2018-10-22] MEDS: Z GUARD REMEDY PASTE 57 GM TUBE TOP SCH ×2 (08:40→20:04)
--- NOTE | 2018-10-22 15:32 | NUR ---
Discharge Planning: plate worker helper and patient son, Guilherme [[phone]], had discussion of discharge plan. Per Guilherme, he would like his father to go to a memory care unit in [place], [place]. However, moving patient to the unit would require [place] [place]. Due to time constraints, Guilherme is unsure if this will work in the short amount of time. Guilherme has agreed to back-up placement of a SNF. plate worker helper faxed SNF referral to [facility] [[address] [place] [address]; ]. plate worker helper awaiting call back.
[2018-10-22 16:46] VITALS: BP 94/54
[2018-10-22 19:53] VITALS: BP 125/71
[2018-10-23 07:30] VITALS: BP 90/55
[2018-10-23] MEDS: HALOPERIDOL 5 MG TABLET PO SCH ×2 (08:43→20:35)
[2018-10-23] MEDS: DIVALPROEX 500 MG TABLET.DR PO SCH (08:43)
[2018-10-23] MEDS: BENZTROPINE MESYLATE 0.5 MG TABLET PO SCH ×2 (08:43→20:35)
[2018-10-23] MEDS: Z GUARD REMEDY PASTE 57 GM TUBE TOP SCH ×2 (08:45→20:33)
[2018-10-23] MEDS: FLUVOXAMINE MALEATE 50 MG TABLET PO SCH (09:00)
[2018-10-23 11:39] LABS: BASOPHILS % (AUTO) 0.5 % (0.0-2.0); EOSINOPHILS # (AUTO) 0.1 K/uL (0.0-0.7); EOSINOPHILS % (AUTO) 1.2 % (0.0-7.0); HEMATOCRIT 35.5 % (36.7-47.1); LYMPHOCYTES # (AUTO) 0.6 K/uL (20.0-40.0); LYMPHOCYTES % (AUTO) 10.2 % (20.5-51.5); MEAN CORPUSCULAR HEMOGLOBIN 32.4 uug (23.8-33.4); MEAN CORPUSCULAR HGB CONC 34 g/dL (32.5-36.3); MEAN CORPUSCULAR VOLUME 95.9 fL (73.0-96.2); MONOCYTES % (AUTO) 17.2 % (0.0-11.0); NEUTROPHILS # (AUTO) 4.1 K/uL (1.8-8.9); NEUTROPHILS % (AUTO) 70.9 % (38.5-71.5); PLATELET COUNT (AUTO) 73 K/uL (152-348); WHITE BLOOD COUNT (AUTO) 5.9 K/uL (3.6-10.2)
[2018-10-23 11:44] LABS: THYROID STIMULATING HORMONE 1.296 mIU/mL (0.358-3.740)
[2018-10-23 11:53] LABS: ALANINE AMINOTRANSFERASE 13 U/L (16-63); ALKALINE PHOSPHATASE 55 U/L (50-136); ASPARTATE AMINOTRANSFERASE 14 U/L (15-37); BILIRUBIN,TOTAL 0.6 mg/dL (0.2-1.0); CARBON DIOXIDE 29 mmol/L (21-32); CHLORIDE 103 mmol/L (98-107); CREATININE 1.2 mg/dL (0.6-1.3); GLUCOSE 118 mg/dL (74-106); POTASSIUM 3.9 mmol/L (3.5-5.1); TOTAL PROTEIN, SERUM 6.1 g/dL (6.4-8.2); UREA NITROGEN, BLOOD 23 mg/dL (7-18)
[2018-10-23 12:52] LABS: BAND % (MANUAL) 1 % (0-10); LYMPHOCYTES % (MANUAL) 6 % (20-40); MONOCYTES % (MANUAL) 20 % (2-10); NEUTROPHILS % (MANUAL) 73 % (42-75)
[2018-10-23 16:02] VITALS: BP 90/48
[2018-10-23] MEDS: DIVALPROEX 250 MG TABLET.DR PO SCH (16:38)
[2018-10-23] MEDS ORDERED: DIVALPROEX 500 MG TABLET.DR PO SCH (17:00)
[2018-10-23 20:27] VITALS: BP 109/64
[2018-10-24] MEDS: HALOPERIDOL 5 MG TABLET PO SCH ×3 (08:14→21:32)
[2018-10-24] MEDS: DIVALPROEX 250 MG TABLET.DR PO SCH ×3 (08:14→16:01)
[2018-10-24] MEDS: FLUVOXAMINE MALEATE 50 MG TABLET PO SCH (08:14)
[2018-10-24] MEDS: BENZTROPINE MESYLATE 0.5 MG TABLET PO SCH ×3 (08:14→21:32)
[2018-10-24] MEDS: Z GUARD REMEDY PASTE 57 GM TUBE TOP SCH ×2 (08:15→20:41)
[2018-10-24 08:17] VITALS: BP 94/63
[2018-10-24] MEDS: ACETAMINOPHEN 325 MG TABLET PO PRN (11:41)
[2018-10-24 17:18] VITALS: BP 92/54
[2018-10-24 19:54] VITALS: BP 96/57
[2018-10-24 21:18] VITALS: BP 121/62
[2018-10-25 07:30] VITALS: BP 102/57
[2018-10-25] MEDS: FLUVOXAMINE MALEATE 50 MG TABLET PO SCH (08:47)
[2018-10-25] MEDS: DIVALPROEX 250 MG TABLET.DR PO SCH ×3 (08:48→16:50)
[2018-10-25] MEDS: BENZTROPINE MESYLATE 0.5 MG TABLET PO SCH ×2 (08:49→20:14)
[2018-10-25] MEDS: HALOPERIDOL 5 MG TABLET PO SCH ×2 (08:49→20:15)
[2018-10-25] MEDS: Z GUARD REMEDY PASTE 57 GM TUBE TOP SCH ×2 (08:49→20:15)
[2018-10-25] MEDS: ACETAMINOPHEN 325 MG TABLET PO PRN (12:07)
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
[2018-10-25 15:12] VITALS: BP 120/58
[2018-10-25 20:01] VITALS: BP 118/68
[2018-10-25] MEDS: DONEPEZIL 5 MG TABLET PO SCH (20:14)
[2018-10-26 07:30] VITALS: BP 139/67
[2018-10-26] MEDS: BENZTROPINE MESYLATE 0.5 MG TABLET PO SCH ×2 (08:38→20:07)
[2018-10-26] MEDS: FLUVOXAMINE MALEATE 50 MG TABLET PO SCH (08:38)
[2018-10-26] MEDS: HALOPERIDOL 5 MG TABLET PO SCH ×2 (08:38→20:07)
[2018-10-26] MEDS: DIVALPROEX 250 MG TABLET.DR PO SCH ×3 (08:38→16:42)
[2018-10-26] MEDS: Z GUARD REMEDY PASTE 57 GM TUBE TOP SCH ×2 (08:38→20:07)
--- NOTE | 2018-10-26 14:10 | NUR ---
Discharge planning: tailings worker spoke with patient son, Guilherme [[phone]], regarding discharge plan and informed him that patient was not accepted at [facility]. tailings worker, with agreement from Guilherme, sent fax referrals to [facility], [facility], [facility], and [facility]. tailings worker awaiting call back from facilities. Guilherme then requested that patient psychiatrist be changed. tailings worker explained that he will need to put request in writing and that change can only be made if there is an accepting psychiatrist. Guilherme produced written request for change of psychiatrist and submitted to clinical social work therapist who then faxed letter to [facility] de[facility]. tailings worker awaiting response from intake.
[2018-10-26 16:12] VITALS: BP 90/43
[2018-10-26 20:05] VITALS: BP 104/48
[2018-10-26] MEDS: DONEPEZIL 5 MG TABLET PO SCH (20:07)
[2018-10-27 07:30] VITALS: BP 105/59
[2018-10-27 07:51] LABS: BASOPHILS % (AUTO) 0.7 % (0.0-2.0); EOSINOPHILS # (AUTO) 0.1 K/uL (0.0-0.7); HEMATOCRIT 38.7 % (36.7-47.1); HEMOGLOBIN 12.9 g/dL (12.5-16.3); LYMPHOCYTES % (AUTO) 27.1 % (20.5-51.5); MEAN CORPUSCULAR HGB CONC 33 g/dL (32.5-36.3); MEAN CORPUSCULAR VOLUME 95.8 fL (73.0-96.2); MONOCYTES # (AUTO) 0.5 K/uL (2.0-10.0); MONOCYTES % (AUTO) 13.4 % (0.0-11.0); NEUTROPHILS % (AUTO) 54.8 % (38.5-71.5); PLATELET COUNT (AUTO) 134 K/uL (152-348); RED BLOOD CELL COUNT(AUTO) 4.04 MIL/uL (4.06-5.63); WHITE BLOOD COUNT (AUTO) 3.6 K/uL (3.6-10.2)
[2018-10-27 07:57] LABS: CARBON DIOXIDE 33 mmol/L (21-32); CHLORIDE 99 mmol/L (98-107); CREATININE 1.1 mg/dL (0.6-1.3); GLUCOSE 82 mg/dL (74-106); POTASSIUM 3.6 mmol/L (3.5-5.1); UREA NITROGEN, BLOOD 18 mg/dL (7-18)
[2018-10-27] MEDS: BENZTROPINE MESYLATE 0.5 MG TABLET PO SCH ×2 (09:04→20:08)
[2018-10-27] MEDS: DIVALPROEX 250 MG TABLET.DR PO SCH ×3 (09:05→17:32)
[2018-10-27] MEDS: HALOPERIDOL 5 MG TABLET PO SCH ×2 (09:07→20:08)
[2018-10-27] MEDS: Z GUARD REMEDY PASTE 57 GM TUBE TOP SCH ×2 (09:10→20:10)
[2018-10-27] MEDS: FLUVOXAMINE MALEATE 50 MG TABLET PO SCH (09:10)
--- NOTE | 2018-10-27 15:22 | NUR ---
Discharge Planning: baby formula worker received phone call from Denice, continuous improvement coordinator, at [facility] stating that patient has been accepted. baby formula worker informed patient son/DPINGEGuilherme.
[2018-10-27 16:00] VITALS: BP 98/59
--- NOTE | 2018-10-27 16:56 | NUR ---
Process Group Note: Patients were asked to answer the question of "What is one thing you would change about yourself and why? Subjective: "I am new here" Objective: Patient asked to participate in group, but was unable to provide answer if he would like to participate and made statements that did not pertain to question being asked. Assessment: Patient appears confused and is observed to wander away from aids social worker mid-answer. Plan: Encourage group attendance as scheduled. grain oilseed or pasture farm worker will provide patient with a group that is at patient cognitive functioning level.
[2018-10-27 20:00] VITALS: BP 111/65
[2018-10-27] MEDS: DONEPEZIL 5 MG TABLET PO SCH (20:08)
[2018-10-27] MEDS: SIMVASTATIN 10 MG TABLET PO SCH (20:54)
[2018-10-28 07:30] VITALS: BP 93/53
[2018-10-28] MEDS: HALOPERIDOL 5 MG TABLET PO SCH ×2 (08:44→20:34)
[2018-10-28] MEDS: DIVALPROEX 250 MG TABLET.DR PO SCH ×3 (08:44→16:30)
[2018-10-28] MEDS: BENZTROPINE MESYLATE 0.5 MG TABLET PO SCH ×2 (08:45→20:34)
[2018-10-28] MEDS: Z GUARD REMEDY PASTE 57 GM TUBE TOP SCH ×2 (08:45→20:34)
[2018-10-28] MEDS: FLUVOXAMINE MALEATE 50 MG TABLET PO SCH (08:45)
[2018-10-28 12:08] VITALS: BP 90/56
--- NOTE | 2018-10-28 15:12 | NUR ---
Discharge Planning: concession worker left voicemail with patient son, Guilherme [[phone]], requesting call back to discuss patient updates and decision on placement as patient has been accepted at [facility] and tentatively [facility]. concession worker will continue to follow-up with patient son. Addendum: 10/28/18 at 1623 by MELISSA FORD Additional Information: concession worker received call back from patient son, Guilherme. Per Guilherme, he does not like [facility] and will not send father there. Guilherme states that he will visit [facility] this weekend. concession worker informed Guilherme that patient is doing much better and that a DC date will be likely be soon. concession worker suggested to Guilherme to make a decision about placement. Guilherme states he understands and will likely send his father to [facility] pending visit.
[2018-10-28 16:00] VITALS: BP 80/49
--- NOTE | 2018-10-28 16:22 | NUR ---
Gps/Chemical Plant Worker Continue to wander around , going from room to room , needed constant redirections. Had been having low b/p 90/56 , asymtomatic, denies being dizzy, encouraged staying in bed for awhile, fluids offered , safety reviewed and emphasized.
[2018-10-28 16:37] VITALS: BP 97/56
[2018-10-28] MEDS: DONEPEZIL 5 MG TABLET PO SCH (20:34)
[2018-10-28] MEDS: SIMVASTATIN 10 MG TABLET PO SCH (20:34)
[2018-10-28 21:30] VITALS: BP 111/58
--- NOTE | 2018-10-29 05:53 | NUR ---
GPS: Remain calm and cooperative with nursing care. no c/o pain or discomfort at this time. slept 7:30 hrs through the night. continue plan of care.
[2018-10-29 07:30] VITALS: BP 104/67
--- NOTE | 2018-10-29 09:37 | NUR ---
Discharge Planning: construction pit worker spoke with Dr. Oquendo this morning who provided discharge orders for patient for today. construction pit worker called and left a voicemail with patient son, Guilherme [[phone]], informing him of patient discharge order at 8:30am. construction pit worker received no callback from Guilherme so made another call at 9:37am and left a second voicemail about scheduled discharge. construction pit worker will continue to follow-up.
[2018-10-29] MEDS: DIVALPROEX 250 MG TABLET.DR PO SCH ×3 (09:44→16:12)
[2018-10-29] MEDS: HALOPERIDOL 5 MG TABLET PO SCH (09:45)
[2018-10-29] MEDS: BENZTROPINE MESYLATE 0.5 MG TABLET PO SCH (09:46)
[2018-10-29] MEDS: Z GUARD REMEDY PASTE 57 GM TUBE TOP SCH (09:47)
[2018-10-29] MEDS: FLUVOXAMINE MALEATE 50 MG TABLET PO SCH (09:47)
--- NOTE | 2018-10-29 11:19 | NUR ---
Discharge Planning: Social vasquez called and left 3rd voicemail for patient son, Guilherme [[phone]], informing him of patient scheduled discharge for today. Social vasquez will continue to follow-up with Guilherme to make contact. Addendum: 10/29/18 at 1151 by MELISSA FORD Additional Information: Nivia vasquez received return phone call from patient son, Guilherme, who states he is agreeable with patient to be discharged today to [facility] [ [address] [place] [place] [address]; ].
--- NOTE | 2018-10-29 11:51 | NUR ---
Discharge Note: Patient will be discharged to [facility] [[place] [address]; ] via ambulance transportation at 3:00pm. Please arrange ambulance transportation for this patient. restuarant crew worker has spoken with faculty support coordinator, Onofre, at facility who states they are ready to accept the patient today. restuarant crew worker called and spoke with patient son, Guilherme [[phone]] who is aware and agreeable with discharge plans. Patient is alert and oriented x1-2, denies SI/HI, and is aware and agreeable with discharge plans. Patient will follow-up with Dr. Christiansen (Biological Technical Officer) and Dr. Jose (psychiatrist). Patient has been provided with outpatient mental health resources to [facility] Crisis Line [ ], Mari Winters [ ], and the National Suicide Prevention Lifeline [ ].
[2018-10-29 16:00] VITALS: BP 100/61
--- NOTE | 2018-10-29 16:45 | NUR ---
Awaiting for pt. to be tow picker and taken to [facility] dcd procedure carried out by battery charger testerrn. Mullins. see dcd procedure.
--- NOTE | 2018-10-29 18:04 | NUR ---
PATIENT IS BEING PICKED UP BY AMBULANCE TO BE TRANSFERRED TO [facility]. PT IS A/O X 1. VS ARE STABLE. ALL BELONGINGS RETURNED. PT IS WILLING TO GO. PT'S SON IS AWARE. DISCHARGE INSTRUCTIONS ARE PROVIDED. REPORT WAS CALLED AND GIVEN TO ALYCE BUCK.
== END 2018-10-29 18:14 | DRG 885 ==
LOC: ER 20:47 → GPS 22:15
PROVIDERS: ADMIT Psychiatry & Neurology Psychiatry; ATTEND Nurse Practitioner Acute Care
DX: F23 Brief psychotic disorder (principal); E43 Unspecified severe protein-calorie malnutrition; N17.0 Acute kidney failure with tubular necrosis; F03.91 Unspecified dementia, unspecified severity, with behavioral disturbance; G93.40 Encephalopathy, unspecified; I67.82 Cerebral ischemia; F42.9 Obsessive-compulsive disorder, unspecified; E78.5 Hyperlipidemia, unspecified; D53.9 Nutritional anemia, unspecified; Z68.22 Body mass index [BMI] 22.0-22.9, adult
CPT/HCPCS: 36415; 70450; 71045; 80164; 80307; 84443; 85025; 93005; 97110; 97116; 97530; A4663; G0480; G0480-TC; J3490